=== PATIENT | female | born 1970 | race Two or more races ===

== ENCOUNTER 2021-05-28 07:51 | Outpatient (CLI) | payer OTHER ==
[~2021-05-28 07:51] MED LIST: CLONAZEPAM0.5 MG; MEDROLPACK PO; ZYRTEC10 MG PO
== END 2021-05-28 08:05 | disposition home or self-care (01) ==
LOC: SONOGRAMA 07:51 → MAMO-SONO 08:15
PROVIDERS: ATTEND Internal Medicine Gastroenterology
DX: K82.8 Other specified diseases of gallbladder (principal); R10.84 Generalized abdominal pain

== ENCOUNTER 2024-06-06 07:51 | Outpatient (CLI) | payer OTHER | END 2024-06-06 08:01 | disposition home or self-care (01) | LOC: SONOGRAMA 07:51 | PROVIDERS: ATTEND Internal Medicine Gastroenterology | DX: K82.4 Cholesterolosis of gallbladder (principal); R16.0 Hepatomegaly, not elsewhere classified ==